=== PATIENT | male | born 1950 | race Caucasian/White ===

== ENCOUNTER 2016-10-05 08:38 | Day surgery (SDC) | payer MEDICARE ==
[2016-09-28 12:33] LABS: HEMATOCRIT 39.7 % (40.0-51.0); HEMOGLOBIN 13.6 g/dL (13.6-17.8)
[2016-09-28 12:47] LABS: BUN (BLOOD UREA NITROGEN) 12 MG/DL (6-23); CALCIUM, SERUM 8.9 MG/DL (8.5-10.4); CHLORIDE, SERUM 101 MMOL/L (96-112); CO2 (CARBON DIOXIDE) 28 MMOL/L (24-34); CREATININE 0.82 MG/DL (0.70-1.30); GFR AFRICAN AMERICAN 108 ML/MIN (>=60); GFR NON AFRICAN AMERICAN 93 ML/MIN (>=60); GLUCOSE, SERUM 96 MG/DL (60-99); POTASSIUM, SERUM 4.1 MMOL/L (3.5-5.3); SODIUM, SERUM 136 MMOL/L (135-148)
--- NOTE | ~2016-10-05 | OP ---
Record Of Operation [facility] [address] [place]. [address] NAME: MJ PHAN : 52 STATUS : [facility]#: [id number] AGE: 66 ADM/REG DATE : 10/05/16 MR#: [id number] REPORT SERV DATE: 10/05/16 DICTATED BY: KYARA WORTHY DATE: 10/05/16 REPORT STATUS : Draft TRANSCRIBED BY: MODL DATE: 10/05/16 DATE OF PROCEDURE: 10/05/2016 PRIMARY CARE PHYSICIAN: Davis Slade. PREOPERATIVE DIAGNOSES: 1. 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 2. Glottic and subglottic stenosis. POSTOPERATIVE DIAGNOSES: 1. 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 2. Glottic and subglottic stenosis. PROCEDURE: Microdirect laryngoscopy with balloon dilation and left laser arytenoidectomy. SURGEON: Kyara Worthy M.D. ANESTHESIA: General. COMPLICATIONS: None. COUNTS: All counts correct following the procedure. ESTIMATED BLOOD LOSS: Minimal. PREOPERATIVE INFORMED CONSENT: We discussed the risk and benefits of surgery including, but not limited to bleeding, infection, possible airway fire, possible loss of airway and , possible need for repeat operation for repeat dilation and repeat laser procedure. He understands the risks and benefits of surgery, and consent is on the chart. PROCEDURE IN DETAIL: The patient was brought to the operating suite and placed on the operating table in supine position. General endotracheal anesthesia was initiated through a previous trach tube. A laser endotracheal tube was used to replace the tracheostomy tube. Head and neck were cleaned and prepped in usual sterile fashion. Moistened eye pads were placed on the eyes. A Dedo laryngoscope was carefully inserted into the oral cavity and advanced just above both vocal cords and suspended from Dumont stand. Through the laryngoscope, a 0-degree Dan vera was used to take pictures prior to dilation as noted to be significant stenosis in the posterior glottic region. This area was dilated using a 16 x 40 mm balloon up to 8 atmospheres. Once this was removed, a microscope was brought into the field and using CO2 laser set at bearing from 7-10 espinosa, left partial arytenoidectomy was performed and curving left posterior glottic airway, there was minimal bleeding. The patient was then taken out of suspension. The teeth were noted to be in preoperative condition. The patient was awakened from anesthesia, the endotracheal tube was replaced for a 6 cuffless Shiley trach tube, and was taken to the recovery room in stable condition. Record Of Operation [facility] [address] [place]. [address] NAME: MJ PHAN : 52 STATUS : [facility] PAT#: [id number] AGE: 66 ADM/REG DATE : 10/05/16 MR#: [id number] REPORT SERV DATE: 10/05/16 DICTATED BY: KYARA WORTHY DATE: 10/05/16 REPORT STATUS : Draft TRANSCRIBED BY: GILLIAN DATE: 10/05/16 PATEL/GILLIAN Kyara Worthy M.D. / [id number] CC: Kyara Worthy M.D.
[~2016-10-05 08:38] MED LIST: *DENIES; BISR PR; CHANTIX1 PO; COLACEUDL PO; LACT30UDL PO; NORV5 PO; PERFOROM INH; PERIDEX PO; PRILO PO; RESTORIL30 MG PO; SEPTRA1 TAB PO; SYN075 PO; TRANSSCOP TOP; TYLENOL 16160 MG/51 PO/LIQ; V5 PO; ZESTORETIC PO
== END 2016-10-05 14:11 | disposition home or self-care (01) ==
LOC: SDC 08:38
PROVIDERS: Otolaryngology
PROC: 0CBS8ZZ Excision of Larynx, Via Natural or Artificial Opening Endoscopic (ICD-10-PCS; principal; 2016-10-05 09:30)
DX: C32.9 Malignant neoplasm of larynx, unspecified (principal); J38.6 Stenosis of larynx; I10 Essential (primary) hypertension; K21.9 Gastro-esophageal reflux disease without esophagitis; E03.9 Hypothyroidism, unspecified; M19.90 Unspecified osteoarthritis, unspecified site
CPT/HCPCS: 80048; 85014; 85018; 94640; C1725; C1726; J0690; J2250; J2405; J2710; J3010